=== PATIENT | male | born 1990 | race Caucasian/White ===

== ENCOUNTER 2017-02-28 13:27 | Emergency (ER) | payer SELFPAY ==
[~2017-02-28 13:27] MED LIST: oxyCODONE/Acetamin 5/325 MG* TAB PO SCH
[2017-02-28] MEDS ORDERED: Erythromycin OPTH OINT* APPLIC OINT LEFT EYE ONE (16:35)
[2017-02-28 17:00] VITALS: BP 118/73
[2017-02-28] MEDS ORDERED: oxyCODONE/Acetamin 5/325 MG* TAB PO ONE ×3 (17:17→19:01)
[2017-02-28] MEDS ORDERED: Ibuprofen TAB* 800 MG PO ONE (17:18)
--- NOTE | 2017-02-28 17:25 | ED ---
Throat Pain/Nasal Congestion - HPI Summary HPI Summary: Pt presents w/ Lt eye pain x 2 days. 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 He woke the next day with pain, swelling and erythema. [place] like he had something in there and he got it out but has residual irritation. Today he has a watery, painful eye and is sensitive to opening eye in general (spontaneously) , worse with light exposure. Denies visual loss or pain w/ eye movement - minimal swelling about the eye. Has not tried anything for relief. - History of Current Complaint Chief Complaint: EDEyeProblem Time Seen by Provider: 02/28/17 15:35 Hx Obtained From: Patient - Allergies/Home Medications Allergies/Adverse Reactions: Allergies Allergy/AdvReac Type Severity Reaction Status Date / Time Amoxicillin Allergy Vomiting Verified 02/28/17 13:33 PMH/Surg Hx/FS Hx/Imm Hx Previously Healthy: Yes Endocrine/Hematology History: Denies: Hx Anticoagulant Therapy, Hx Blood Disorders, Autoimmune Disease Sensory History: Denies: Hx Cataracts, Hx Contacts or Glasses, Hx Eye Injury, Hx Eye Prosthesis, Hx Glaucoma Opthamlomology History: Denies: Hx Cataracts, Hx Contacts or Glasses, Hx Eye Injury, Hx Legally Blind , Hx Macular Degeneration, Hx Vision Problem - Immunization History Immunizations Up to Date: Yes - 2014 Infectious Disease History: No Infectious Disease History: Denies: Traveled Outside the [place] in Last 30 Days - Social History Occupation: Employed Full-time Alcohol Use: None Substance Use Type: Reports: None Smoking Status (MU): Unknown if Ever Smoked Review of Systems Negative: Fever, Chills, Fatigue Eyes: Other - see HPI Positive: Photophobia, Drainage, Erythema. Negative: Diplopia Negative: Sore Throat, Ear Ache, Nasal Discharge Cardiovascular: Negative Respiratory: Negative Negative: Vomiting, Nausea Positive: no symptoms reported Negative: Arthralgia - no neck pain Negative: Rash Negative: Headache Psychological: Normal All Other Systems Reviewed And Are Negative: Yes Physical Exam Triage Information Reviewed: Yes Vital Signs On Initial Exam: Initial Vitals Temp Pulse Resp BP Pulse Ox 98.7 F 76 16 123/75 97 02/28/17 13:32 02/28/17 13:32 02/28/17 13:32 02/28/17 13:32 02/28/17 13:32 Vital Signs Reviewed: Yes Appearance: Positive: Well-Appearing, Pain Distress - sleeping upon entrance to room - once awake, keeps Lt eye closed - apprehensive to open actively, sensitive to opening passively by himself or myself Skin: Positive: Warm, Dry - no rash overlying [place] or face/scalp Head/Face: Positive: Normal Head/Face Inspection - NTTP Eyes: Positive: EOMI, JENNIFER, Conjunctiva Inflammed, Discharge - active watery d/ c w/ purulent d/c in lashes and corner of eye, Other: - Fluoresceine eye exam does not reveal uptake (ie, no abrasion pattern, no ulcer, no sloughing); (-) Siedel's sign; no FB on eye or within mucosal tissue of upper/lower palpebra; pt has brief relief w/ tetracaine however develops significant pain after erythromycin application - pH tested and appears to be higher end of normal 7 - eye flushed with saline and pain med ordered - will change anbx ointment and apply patch. Advised to f/u w/ ophthomology tomorrow morning. ENT: Positive: Normal ENT inspection, Hearing grossly normal, Pharynx normal. Negative: Nasal congestion, Nasal drainage Neck: Positive: Supple, Nontender, No Lymphadenopathy Respiratory/Lung Sounds: Positive: Breath Sounds Present Cardiovascular: Positive: Normal Musculoskeletal: Positive: Normal, Strength/ROM Intact Neurological: Positive: Normal, Sensory/Motor Intact, Alert, Oriented to Person Place, Time, CN Intact II-III Psychiatric: Positive: Normal - at rest - anxious when pain is high Procedures - Eye Procedure Alcaine Drops Administered: No - tetracaine - see PE for details Antibiotic Ointment/Drps Admin: left eye - erythromycin ointment - triggered pain Diagnostics - Vital Signs Vital Signs Temp Pulse Resp BP Pulse Ox 02/28/17 16:58 68 16 118/73 02/28/17 13:32 98.7 F 76 16 123/75 97 - Laboratory Lab Statement: Any lab studies that have been ordered have been reviewed, and results considered in the medical decision making process. EENT Course/Dx - Course Course Of Treatment: Fluoresceine eye exam does not reveal uptake (ie, no abrasion pattern, no ulcer, no sloughing); (-) Siedel's sign; no FB on eye or within mucosal tissue of upper/lower palpebra; pt has brief relief w/ tetracaine however develops significant pain after erythromycin application - pH tested and appears to be higher end of normal 7 - eye flushed with saline and pain med ordered - will change anbx ointment to gentamicin drops and apply patch. Pain improved w/ flushing, pain med. Advised to f/u w/ ophthomology tomorrow morning. Contact information provided. Reviewed danger s/sx of when to return to ED - Diagnoses Provider Diagnoses: Conjunctivitis, left eye - Provider Notifications Discussed Care Of Patient With: Benjamin Carrera Discharge - Discharge Plan Condition: Stable Disposition: HOME Prescriptions: Gentamicin 0.3% OPHTH.SOLN* 2 drop LEFT EYE Q4H #1 btl HYDROcodone/ACETAMIN 5-325 MG* [Beason 5-325 TAB*] 1 tab PO Q6H PRN #12 tab MDD 4 PRN Reason: Pain Ibuprofen TAB* [Motrin TAB* 600 MG] 600 mg PO Q6H PRN #20 tab PRN Reason: Pain Patient Education Materials: Conjunctivitis (ED) Referrals: Markos Givens MD [Medical Doctor] - Additional Instructions: You appear to have conjunctivitis. The definitive cause is unknown so you will be prescribed an antibiotic to address bacteria in the eye. You may use saline eye wash to rinse your eye throughout the day before applying antibiotic ointment. Wash hands before placing antibiotic to prevent further infection, irritation, etc. Call ophthomologist tomorrow morning for follow-up. Contact information included here. *If you develop headache, neck pain, fever, loss of vision, return to ED
[2017-02-28] MEDS: Gentamicin 0.3% OPHTH.SOLN* 5 ML BTL LEFT EYE ONE ×2 (18:13→20:33)
== END 2017-02-28 18:10 | disposition home or self-care (01) ==
LOC: ED 13:27
DX: H10.32 Unspecified acute conjunctivitis, left eye (principal); Z88.1 Allergy status to other antibiotic agents
CPT/HCPCS: 99282; A9270-GY